=== PATIENT | female | born 1970 | race African-American/Black ===

== ENCOUNTER 2023-10-21 10:36 | Emergency (ER) | payer OTHER ==
[2023-10-21 11:06] VITALS: TEMP 98.7; BMI 29.0
[2023-10-21 11:38] LABS: INR 1.11 (0.83-1.09); PROTHROMBIN TIME (PATIENT) 12.9 SEC (9.7-13.0)
[2023-10-21 11:40] LABS: HEMATOCRIT 36.7 % (32.4-45.2); HEMOGLOBIN 11.8 G/dL (10.7-15.3); MCH 30.5 pg (25.7-33.7); MEAN CELL VOLUME 95.4 fl (80-96); MEAN PLT VOLUME 11.2 fl (7.5-11.1); PLATELET COUNT 153.8 10^3/uL (134-434); RBC 3.85 10^6/uL (3.60-5.2); RDW 15.1 % (11.6-15.6); WHITE BLOOD COUNT 4.5 10^3/uL (4.0-10.8)
[2023-10-21 11:41] LABS: ACTIVATED PTT 31.4 SECONDS (25.2-36.5)
[2023-10-21 11:52] LABS: ALBUMIN 4.2 g/dl (3.4-5.0); BILIRUBIN,TOTAL 0.5 mg/dl (0.2-1); CALCIUM 8.8 mg/dl (8.5-10.1); CREATININE 7.4 mg/dl (0.6-1.3); MAGNESIUM 2.2 mg/dL (1.8-2.4); POTASSIUM 4.3 mmol/L (3.5-5.1); TOT PROT 7.6 g/dl (6.4-8.2)
[2023-10-21 12:57] LABS: PLATELET ESTIMATE ADEQUATE
[2023-10-21 13:08] VITALS: RESP 16
[2023-10-21 14:55] VITALS: BP 169/82; PULSE 79
== END 2023-10-21 15:14 | disposition home or self-care (01) ==
LOC: FER 10:36
DX: R07.2 Precordial pain (principal)
CPT/HCPCS: 36415; 71045-TC-FY; 80053; 83735; 84484; 85027; 85610; 85730; 93005; 99285-25